=== PATIENT | male | born 1960 | race Caucasian/White ===

== ENCOUNTER 2021-07-03 16:41 | Inpatient (IN) | payer OTHER ==
[2021-07-03] MEDS ORDERED: MENTHOL/PHENOL 1 EACH UD MM PRN (18:21)
[2021-07-03] MEDS ORDERED: ONDANSETRON *ODT* 4 MG TABLET SL PRN (18:21)
[2021-07-03] MEDS ORDERED: BISMUTH SUBSALICYLATE 524 MG/30 ML PO PRN (18:21)
[2021-07-03] MEDS ORDERED: ACETAMINOPHEN 325 MG TABLET (FP) PO PRN ×2 (18:21)
[2021-07-03] MEDS ORDERED: MAGNESIUM CITRATE 300 ML BOTTLE PO PRN (18:21)
[2021-07-03] MEDS ORDERED: MAG HYDROX/AL HYDROX/SIMETH 30 ML UNIT-DOSE CUP PO PRN (18:21)
[2021-07-03 18:39] VITALS: BMI 25.2
[2021-07-03] MEDS ORDERED: diazePAM 5 MG TABLET PO PRN (19:45)
[2021-07-03] MEDS: THIAMINE HCL 100 MG TABLET (FP) PO SCH (22:07)
[2021-07-03] MEDS: hydrOXYzine PAMOATE 25 MG CAPSULE (FP) PO PRN (22:07)
[2021-07-03] MEDS: MELATONIN 5 MG TABLETS PO SCH (22:07)
[2021-07-03] MEDS: MAGNESIUM HYDROX 2400MG/30ML ORAL SUSPENSION 30 ML CUP PO PRN (22:08)
[2021-07-04] MEDS: LEVOTHYROXINE NA 25 MCG TABLET (FP) PO SCH ×2 (06:08→10:02)
[2021-07-04] MEDS: PRENATAL VITAMINS W/ FOLIC ACID TABLET (FP) PO SCH (09:59)
[2021-07-04] MEDS: ASPIRIN 81 MG CHEWABLE TABLETS PO SCH (10:00)
[2021-07-04] MEDS ORDERED: APIXABAN 5 MG TABLET PO SCH (10:00)
[2021-07-04] MEDS ORDERED: METOPROLOL TARTRATE 25 MG TABLET (FP) PO SCH (10:00)
[2021-07-04] MEDS ORDERED: APIXABAN 2.5 MG TABLET PO SCH (10:00)
[2021-07-04] MEDS: FAMOTIDINE 20 MG TABLET PO SCH ×2 (10:00→22:05)
[2021-07-04] MEDS ORDERED: DIGOXIN 0.125 MG TABLET PO SCH (10:00)
[2021-07-04] MEDS: diazePAM 5 MG TABLET PO SCH ×3 (10:21→22:05)
[2021-07-04 10:30] LABS: HEMATOCRIT 47.2 % (35.4-49); HEMOGLOBIN 15.7 GM/dL (11.7-16.9); MCH 29.9 pg (25.7-33.7); MCHC 33.4 g/dl (32.0-35.9); MEAN CELL VOLUME 89.8 fl (80-96); PLATELET COUNT 248 10^3/uL (134-434); RBC 5.26 M/mm3 (4.00-5.60); RDW 13.6 % (11.9-15.9); WHITE BLOOD COUNT 5.8 K/mm3 (4.0-10.0)
[2021-07-04 10:52] LABS: CALCIUM 9.6 mg/dL (8.5-10.1)
[2021-07-04 10:53] LABS: ALBUMIN 4.2 g/dl (3.4-5.0); BLOOD UREA NITROGEN 17.7 mg/dL (7-18)
[2021-07-04 10:56] LABS: CREATININE 0.9 mg/dL (0.55-1.3)
[2021-07-04 10:57] LABS: BILIRUBIN,TOTAL 0.8 mg/dL (0.2-1); TOT PROT 7.1 g/dl (6.4-8.2)
[2021-07-04] MEDS: MAGNESIUM HYDROX 2400MG/30ML ORAL SUSPENSION 30 ML CUP PO PRN (17:00)
[2021-07-04] MEDS: hydrOXYzine PAMOATE 25 MG CAPSULE (FP) PO PRN (17:00)
[2021-07-04] MEDS: diazePAM 5 MG TABLET PO PRN (20:39)
[2021-07-04] MEDS: METOPROLOL TARTRATE 25 MG TABLET (FP) PO SCH (20:58)
[2021-07-04] MEDS: APIXABAN 5 MG TABLET PO SCH (20:59)
[2021-07-04] MEDS: THIAMINE HCL 100 MG TABLET (FP) PO SCH (22:05)
[2021-07-04] MEDS: SENNOSIDES 8.6MG TABLET (FP) PO PRN (22:05)
[2021-07-04] MEDS: MELATONIN 5 MG TABLETS PO SCH (22:05)
[2021-07-05] MEDS: diazePAM 5 MG TABLET PO SCH ×4 (04:53→22:00)
[2021-07-05] MEDS: LEVOTHYROXINE NA 25 MCG TABLET (FP) PO SCH (06:35)
[2021-07-05] MEDS: APIXABAN 5 MG TABLET PO SCH ×2 (10:13→20:06)
[2021-07-05] MEDS: FAMOTIDINE 20 MG TABLET PO SCH ×2 (10:13→22:01)
[2021-07-05] MEDS: METOPROLOL TARTRATE 25 MG TABLET (FP) PO SCH ×2 (10:14→20:06)
[2021-07-05] MEDS: ASPIRIN 81 MG CHEWABLE TABLETS PO SCH (10:14)
[2021-07-05] MEDS: PRENATAL VITAMINS W/ FOLIC ACID TABLET (FP) PO SCH (10:14)
[2021-07-05] MEDS: DIGOXIN 0.125 MG TABLET PO SCH (13:10)
[2021-07-05] MEDS: diazePAM 5 MG TABLET PO PRN ×2 (13:11→20:05)
[2021-07-05] MEDS: MAGNESIUM HYDROX 2400MG/30ML ORAL SUSPENSION 30 ML CUP PO PRN (17:25)
[2021-07-05] MEDS: MELATONIN 5 MG TABLETS PO SCH (22:00)
[2021-07-05] MEDS: hydrOXYzine PAMOATE 25 MG CAPSULE (FP) PO PRN (22:01)
[2021-07-05] MEDS: THIAMINE HCL 100 MG TABLET (FP) PO SCH (22:01)
[2021-07-05] MEDS: SENNOSIDES 8.6MG TABLET (FP) PO PRN (22:02)
[2021-07-06] MEDS: diazePAM 5 MG TABLET PO SCH ×3 (05:08→21:59)
[2021-07-06] MEDS: LEVOTHYROXINE NA 25 MCG TABLET (FP) PO SCH (06:19)
[2021-07-06] MEDS: diazePAM 5 MG TABLET PO PRN ×2 (08:08→17:28)
[2021-07-06] MEDS: APIXABAN 5 MG TABLET PO SCH ×2 (08:43→20:05)
[2021-07-06] MEDS: METOPROLOL TARTRATE 25 MG TABLET (FP) PO SCH ×2 (08:43→20:04)
[2021-07-06] MEDS: ASPIRIN 81 MG CHEWABLE TABLETS PO SCH (10:14)
[2021-07-06] MEDS: FAMOTIDINE 20 MG TABLET PO SCH ×2 (10:14→22:00)
[2021-07-06] MEDS: PRENATAL VITAMINS W/ FOLIC ACID TABLET (FP) PO SCH (10:14)
[2021-07-06] MEDS ORDERED: MAGNESIUM CITRATE 300 ML BOTTLE PO ONE (10:15)
[2021-07-06] MEDS: METHOCARBAMOL 500 MG TABLET PO PRN ×2 (10:33→22:02)
[2021-07-06] MEDS: hydrOXYzine PAMOATE 25 MG CAPSULE (FP) PO PRN ×2 (10:33→23:16)
[2021-07-06] MEDS: DIGOXIN 0.125 MG TABLET PO SCH (13:11)
[2021-07-06] MEDS: MAGNESIUM HYDROX 2400MG/30ML ORAL SUSPENSION 30 ML CUP PO PRN (17:29)
[2021-07-06] MEDS: MELATONIN 5 MG TABLETS PO SCH (21:59)
[2021-07-06] MEDS: THIAMINE HCL 100 MG TABLET (FP) PO SCH (22:00)
[2021-07-06] MEDS: SENNOSIDES 8.6MG TABLET (FP) PO PRN (22:00)
[2021-07-07] MEDS ORDERED: diazePAM 5 MG TABLET PO SCH (06:00)
[2021-07-07] MEDS: LEVOTHYROXINE NA 25 MCG TABLET (FP) PO SCH (07:21)
[2021-07-07] MEDS: METOPROLOL TARTRATE 25 MG TABLET (FP) PO SCH ×3 (07:21→19:02)
[2021-07-07] MEDS: APIXABAN 5 MG TABLET PO SCH ×2 (07:21→19:03)
[2021-07-07] MEDS: PRENATAL VITAMINS W/ FOLIC ACID TABLET (FP) PO SCH (10:38)
[2021-07-07] MEDS: ASPIRIN 81 MG CHEWABLE TABLETS PO SCH (10:38)
[2021-07-07] MEDS: FAMOTIDINE 20 MG TABLET PO SCH ×2 (10:38→22:05)
[2021-07-07] MEDS: DIGOXIN 0.125 MG TABLET PO SCH (12:37)
[2021-07-07] MEDS ORDERED: diazePAM 5 MG TABLET PO ONE ×3 (16:52→22:00)
[2021-07-07] MEDS: MAGNESIUM HYDROX 2400MG/30ML ORAL SUSPENSION 30 ML CUP PO PRN (22:04)
[2021-07-07] MEDS: MELATONIN 5 MG TABLETS PO SCH (22:04)
[2021-07-07] MEDS: hydrOXYzine PAMOATE 25 MG CAPSULE (FP) PO PRN (22:05)
[2021-07-07] MEDS: METHOCARBAMOL 500 MG TABLET PO PRN (22:05)
[2021-07-07] MEDS: THIAMINE HCL 100 MG TABLET (FP) PO SCH (23:29)
[2021-07-08] MEDS ORDERED: diazePAM 5 MG TABLET PO ONE (06:00)
[2021-07-08] MEDS: LEVOTHYROXINE NA 25 MCG TABLET (FP) PO SCH (07:04)
[2021-07-08] MEDS: METOPROLOL TARTRATE 25 MG TABLET (FP) PO SCH ×2 (07:04→19:16)
[2021-07-08] MEDS: APIXABAN 5 MG TABLET PO SCH ×2 (07:04→19:16)
[2021-07-08] MEDS: PRENATAL VITAMINS W/ FOLIC ACID TABLET (FP) PO SCH (10:25)
[2021-07-08] MEDS: FAMOTIDINE 20 MG TABLET PO SCH ×2 (10:25→21:41)
[2021-07-08] MEDS: ASPIRIN 81 MG CHEWABLE TABLETS PO SCH (10:25)
[2021-07-08] MEDS: DIGOXIN 0.125 MG TABLET PO SCH (12:02)
[2021-07-08] MEDS: hydrOXYzine PAMOATE 25 MG CAPSULE (FP) PO PRN ×2 (16:38→21:41)
[2021-07-08] MEDS: METHOCARBAMOL 500 MG TABLET PO PRN (19:16)
[2021-07-08] MEDS: SENNOSIDES 8.6MG TABLET (FP) PO PRN (19:48)
[2021-07-08] MEDS: MELATONIN 5 MG TABLETS PO SCH (21:41)
[2021-07-08] MEDS: THIAMINE HCL 100 MG TABLET (FP) PO SCH (21:41)
[2021-07-09] MEDS: METHOCARBAMOL 500 MG TABLET PO PRN ×2 (01:17→10:15)
[2021-07-09] MEDS: LEVOTHYROXINE NA 25 MCG TABLET (FP) PO SCH (06:55)
[2021-07-09] MEDS: METOPROLOL TARTRATE 25 MG TABLET (FP) PO SCH (07:14)
[2021-07-09] MEDS: APIXABAN 5 MG TABLET PO SCH (07:14)
[2021-07-09] MEDS: hydrOXYzine PAMOATE 25 MG CAPSULE (FP) PO PRN (10:15)
[2021-07-09] MEDS: PRENATAL VITAMINS W/ FOLIC ACID TABLET (FP) PO SCH (10:15)
[2021-07-09] MEDS: ASPIRIN 81 MG CHEWABLE TABLETS PO SCH (10:15)
[2021-07-09 13:10] VITALS: BP 96/65; PULSE 100; TEMP 96.8
[2021-07-09] MEDS: FAMOTIDINE 20 MG TABLET PO SCH (13:11)
[2021-07-09] MEDS: DIGOXIN 0.125 MG TABLET PO SCH (13:11)
== END 2021-07-09 13:37 | disposition other institution (70) | DRG 775 ==
LOC: YASAS 16:41 → Y3N 21:20
PROVIDERS: ADMIT Allergy & Immunology; ATTEND Allergy & Immunology
PROC: HZ2ZZZZ Detoxification Services for Substance Abuse Treatment (ICD-10-PCS; principal; 2021-07-03)
DX: F10.230 Alcohol dependence with withdrawal, uncomplicated (principal); F12.20 Cannabis dependence, uncomplicated; F17.210 Nicotine dependence, cigarettes, uncomplicated; I48.91 Unspecified atrial fibrillation; I48.92 Unspecified atrial flutter; I10 Essential (primary) hypertension; E03.9 Hypothyroidism, unspecified; K21.9 Gastro-esophageal reflux disease without esophagitis; Z86.16 Personal history of COVID-19; Z86.79 Personal history of other diseases of the circulatory system; Z79.02 Long term (current) use of antithrombotics/antiplatelets
CPT/HCPCS: 36415; 80053; 80162; 84443; 85027; 86780; 93005; 93010; C9803; Q0162; U0003; U0005

== ENCOUNTER 2021-07-09 12:19 | Inpatient (IN) | payer OTHER ==
[2021-07-09] MEDS ORDERED: MENTHOL/PHENOL 1 EACH UD MM PRN (14:25)
[2021-07-09] MEDS ORDERED: MAGNESIUM CITRATE 300 ML BOTTLE PO PRN (14:25)
[2021-07-09] MEDS ORDERED: guaiFENesin 200 MG/10 ML 10 ML UNIT-DOSE CUPS PO PRN (14:25)
[2021-07-09] MEDS ORDERED: LOPERAMIDE HCL 2 MG CAPSULE PO PRN (14:25)
[2021-07-09] MEDS ORDERED: P-EPHED 60MG/TRIPROLIDI 2.5MG TABLET PO PRN (14:25)
[2021-07-09] MEDS ORDERED: IBUPROFEN 400 MG TABLET (FP) PO PRN (14:25)
[2021-07-09] MEDS ORDERED: NICOTINE 10 MG CARTRIDGE (INHALER) IH PRN (14:25)
[2021-07-09] MEDS ORDERED: MAGNESIUM HYDROX 2400MG/30ML ORAL SUSPENSION 30 ML CUP PO PRN (14:25)
[2021-07-09] MEDS ORDERED: METOPROLOL TARTRATE 25 MG TABLET (FP) PO ONE (14:32)
[2021-07-09] MEDS: METOPROLOL TARTRATE 50 MG TABLET (FP) PO SCH (21:01)
[2021-07-09] MEDS: APIXABAN 5 MG TABLET PO SCH (21:02)
[2021-07-09] MEDS: THIAMINE HCL 100 MG TABLET (FP) PO SCH (21:02)
[2021-07-09] MEDS: MELATONIN 5 MG TABLETS PO SCH (21:02)
[2021-07-09] MEDS: FAMOTIDINE 20 MG TABLET PO SCH (21:02)
[2021-07-09] MEDS: ACETAMINOPHEN 325 MG TABLET (FP) PO PRN (23:12)
[2021-07-10] MEDS: LEVOTHYROXINE NA 25 MCG TABLET (FP) PO SCH (07:29)
[2021-07-10] MEDS: ASPIRIN 81 MG CHEWABLE TABLETS PO SCH (09:36)
[2021-07-10] MEDS: METOPROLOL TARTRATE 50 MG TABLET (FP) PO SCH ×2 (09:36→21:15)
[2021-07-10] MEDS: APIXABAN 5 MG TABLET PO SCH ×2 (09:36→21:33)
[2021-07-10] MEDS: FAMOTIDINE 20 MG TABLET PO SCH ×2 (09:36→21:15)
[2021-07-10] MEDS: PRENATAL VITAMINS W/ FOLIC ACID TABLET (FP) PO SCH (09:36)
[2021-07-10] MEDS ORDERED: LEVOTHYROXINE NA 25 MCG TABLET (FP) PO SCH (10:00)
[2021-07-10] MEDS ORDERED: NICOTINE 7 MG/24 HOURS TOPICAL PATCH TD SCH (10:00)
[2021-07-10] MEDS: NICOTINE 10 MG CARTRIDGE (INHALER) IH PRN ×4 (11:51→23:52)
[2021-07-10] MEDS: DIGOXIN 0.125 MG TABLET PO SCH (14:09)
[2021-07-10] MEDS: HYDROCORTISONE 0.5% TOPICAL CREAM 30 GM TUBE TP PRN (15:42)
[2021-07-10] MEDS: DOCUSATE SODIUM 100 MG CAPSULE (FP) PO PRN (21:15)
[2021-07-10] MEDS: THIAMINE HCL 100 MG TABLET (FP) PO SCH (21:15)
[2021-07-10] MEDS: BISACODYL 5 MG TABLET.DR (FP) PO PRN (21:15)
[2021-07-10] MEDS: MELATONIN 5 MG TABLETS PO SCH (21:18)
[2021-07-10] MEDS ORDERED: DOCUSATE SODIUM 100 MG CAPSULE (FP) PO SCH (22:00)
[2021-07-11] MEDS: ACETAMINOPHEN 325 MG TABLET (FP) PO PRN ×2 (01:29→23:11)
[2021-07-11] MEDS: LEVOTHYROXINE NA 25 MCG TABLET (FP) PO SCH (06:04)
[2021-07-11] MEDS: NICOTINE 10 MG CARTRIDGE (INHALER) IH PRN ×5 (06:05→21:47)
[2021-07-11] MEDS: FAMOTIDINE 20 MG TABLET PO SCH ×2 (10:19→21:42)
[2021-07-11] MEDS: PRENATAL VITAMINS W/ FOLIC ACID TABLET (FP) PO SCH (10:19)
[2021-07-11] MEDS: ASPIRIN 81 MG CHEWABLE TABLETS PO SCH (10:19)
[2021-07-11] MEDS: BISACODYL 5 MG TABLET.DR (FP) PO PRN ×2 (10:20→21:42)
[2021-07-11] MEDS: METOPROLOL TARTRATE 50 MG TABLET (FP) PO SCH ×2 (10:21→21:46)
[2021-07-11] MEDS: APIXABAN 5 MG TABLET PO SCH ×2 (11:05→21:44)
[2021-07-11] MEDS: DIGOXIN 0.125 MG TABLET PO SCH (13:30)
[2021-07-11] MEDS: hydrOXYzine PAMOATE 25 MG CAPSULE (FP) PO PRN (17:09)
[2021-07-11] MEDS: HYDROCORTISONE 0.5% TOPICAL CREAM 30 GM TUBE TP PRN (19:34)
[2021-07-11] MEDS: THIAMINE HCL 100 MG TABLET (FP) PO SCH (21:42)
[2021-07-11] MEDS: DOCUSATE SODIUM 100 MG CAPSULE (FP) PO PRN (21:44)
[2021-07-11] MEDS: MELATONIN 5 MG TABLETS PO SCH (21:45)
[2021-07-12] MEDS: LEVOTHYROXINE NA 25 MCG TABLET (FP) PO SCH (06:00)
[2021-07-12] MEDS: NICOTINE 10 MG CARTRIDGE (INHALER) IH PRN ×4 (06:01→21:41)
[2021-07-12] MEDS: PRENATAL VITAMINS W/ FOLIC ACID TABLET (FP) PO SCH (10:39)
[2021-07-12] MEDS: ASPIRIN 81 MG CHEWABLE TABLETS PO SCH (10:40)
[2021-07-12] MEDS: FAMOTIDINE 20 MG TABLET PO SCH ×2 (10:40→21:40)
[2021-07-12] MEDS: APIXABAN 5 MG TABLET PO SCH ×2 (10:40→21:40)
[2021-07-12] MEDS: hydrOXYzine PAMOATE 25 MG CAPSULE (FP) PO PRN (10:41)
[2021-07-12] MEDS: METOPROLOL TARTRATE 50 MG TABLET (FP) PO SCH ×2 (11:39→21:40)
[2021-07-12] MEDS: DIGOXIN 0.125 MG TABLET PO SCH (13:28)
[2021-07-12] MEDS: THIAMINE HCL 100 MG TABLET (FP) PO SCH (21:41)
[2021-07-12] MEDS: ACETAMINOPHEN 325 MG TABLET (FP) PO PRN (21:41)
[2021-07-12] MEDS: DOCUSATE SODIUM 100 MG CAPSULE (FP) PO PRN (21:45)
[2021-07-12] MEDS ORDERED: SUVOREXANT 10 MG TABLET PO PRN (22:00)
[2021-07-13] MEDS: BISACODYL 5 MG TABLET.DR (FP) PO PRN ×2 (01:07→20:14)
[2021-07-13] MEDS: LEVOTHYROXINE NA 25 MCG TABLET (FP) PO SCH (06:08)
[2021-07-13] MEDS: NICOTINE 10 MG CARTRIDGE (INHALER) IH PRN ×7 (06:08→23:01)
[2021-07-13] MEDS: METOPROLOL TARTRATE 50 MG TABLET (FP) PO SCH (08:00)
[2021-07-13] MEDS: APIXABAN 5 MG TABLET PO SCH ×2 (08:00→20:08)
[2021-07-13] MEDS: PRENATAL VITAMINS W/ FOLIC ACID TABLET (FP) PO SCH (10:30)
[2021-07-13] MEDS: FAMOTIDINE 20 MG TABLET PO SCH ×2 (10:30→21:38)
[2021-07-13] MEDS: ASPIRIN 81 MG CHEWABLE TABLETS PO SCH (10:30)
[2021-07-13] MEDS: DIGOXIN 0.125 MG TABLET PO SCH (14:31)
[2021-07-13] MEDS ORDERED: METOPROLOL TARTRATE 50 MG TABLET (FP) PO SCH (20:00)
[2021-07-13] MEDS: METOPROLOL TARTRATE 25 MG TABLET (FP) PO SCH (20:08)
[2021-07-13] MEDS: DOCUSATE SODIUM 100 MG CAPSULE (FP) PO PRN (20:14)
[2021-07-13] MEDS: ACETAMINOPHEN 325 MG TABLET (FP) PO PRN (21:37)
[2021-07-13] MEDS: THIAMINE HCL 100 MG TABLET (FP) PO SCH (21:39)
[2021-07-14] MEDS: LEVOTHYROXINE NA 25 MCG TABLET (FP) PO SCH (06:11)
[2021-07-14] MEDS: APIXABAN 5 MG TABLET PO SCH ×2 (07:56→21:10)
[2021-07-14] MEDS: METOPROLOL TARTRATE 25 MG TABLET (FP) PO SCH ×2 (07:58→21:07)
[2021-07-14] MEDS: ASPIRIN 81 MG CHEWABLE TABLETS PO SCH (10:30)
[2021-07-14] MEDS: FAMOTIDINE 20 MG TABLET PO SCH ×2 (10:30→21:08)
[2021-07-14] MEDS: PRENATAL VITAMINS W/ FOLIC ACID TABLET (FP) PO SCH (10:30)
[2021-07-14] MEDS: BISACODYL 5 MG TABLET.DR (FP) PO PRN (10:32)
[2021-07-14] MEDS: NICOTINE 10 MG CARTRIDGE (INHALER) IH PRN ×2 (10:32→12:46)
[2021-07-14] MEDS: DIGOXIN 0.125 MG TABLET PO SCH (12:46)
[2021-07-14] MEDS ORDERED: MAGNESIUM CITRATE 300 ML BOTTLE PO ONE (19:57)
[2021-07-14] MEDS: THIAMINE HCL 100 MG TABLET (FP) PO SCH (21:08)
[2021-07-14] MEDS: MELATONIN 5 MG TABLETS PO PRN (21:08)
[2021-07-14] MEDS: ACETAMINOPHEN 325 MG TABLET (FP) PO PRN (22:53)
[2021-07-15] MEDS: LEVOTHYROXINE NA 25 MCG TABLET (FP) PO SCH (06:14)
[2021-07-15] MEDS: METOPROLOL TARTRATE 25 MG TABLET (FP) PO SCH ×2 (07:34→21:27)
[2021-07-15] MEDS: APIXABAN 5 MG TABLET PO SCH ×2 (07:34→21:26)
[2021-07-15] MEDS: FAMOTIDINE 20 MG TABLET PO SCH ×2 (10:01→21:27)
[2021-07-15] MEDS: ASPIRIN 81 MG CHEWABLE TABLETS PO SCH (10:01)
[2021-07-15] MEDS: PRENATAL VITAMINS W/ FOLIC ACID TABLET (FP) PO SCH (10:01)
[2021-07-15] MEDS ORDERED: METOPROLOL TARTRATE 25 MG TABLET (FP) PO ONE (11:15)
[2021-07-15] MEDS: NICOTINE 10 MG CARTRIDGE (INHALER) IH PRN ×3 (11:51→21:31)
[2021-07-15] MEDS: DIGOXIN 0.125 MG TABLET PO SCH (13:16)
[2021-07-15] MEDS: THIAMINE HCL 100 MG TABLET (FP) PO SCH (21:27)
[2021-07-15] MEDS: BISACODYL 5 MG TABLET.DR (FP) PO PRN (21:27)
[2021-07-15] MEDS: DOCUSATE SODIUM 100 MG CAPSULE (FP) PO PRN (21:30)
[2021-07-15] MEDS: ACETAMINOPHEN 325 MG TABLET (FP) PO PRN (22:45)
[2021-07-16] MEDS: LEVOTHYROXINE NA 25 MCG TABLET (FP) PO SCH (06:06)
[2021-07-16] MEDS: NICOTINE 10 MG CARTRIDGE (INHALER) IH PRN ×6 (06:08→23:48)
[2021-07-16] MEDS: METOPROLOL TARTRATE 25 MG TABLET (FP) PO SCH ×2 (07:58→21:48)
[2021-07-16] MEDS: APIXABAN 5 MG TABLET PO SCH ×2 (07:58→21:51)
[2021-07-16] MEDS: ACETAMINOPHEN 325 MG TABLET (FP) PO PRN ×2 (08:51→21:52)
[2021-07-16] MEDS: ASPIRIN 81 MG CHEWABLE TABLETS PO SCH (09:40)
[2021-07-16] MEDS: FAMOTIDINE 20 MG TABLET PO SCH ×2 (09:40→21:49)
[2021-07-16] MEDS: PRENATAL VITAMINS W/ FOLIC ACID TABLET (FP) PO SCH (09:40)
[2021-07-16] MEDS: DIGOXIN 0.125 MG TABLET PO SCH (14:20)
[2021-07-16] MEDS: MELATONIN 5 MG TABLETS PO PRN (21:49)
[2021-07-16] MEDS: THIAMINE HCL 100 MG TABLET (FP) PO SCH (21:49)
[2021-07-16] MEDS: BISACODYL 5 MG TABLET.DR (FP) PO PRN (21:51)
[2021-07-16] MEDS: DOCUSATE SODIUM 100 MG CAPSULE (FP) PO PRN (21:52)
[2021-07-17] MEDS ORDERED: METOPROLOL TARTRATE 25 MG TABLET (FP) PO ONE ×2 (01:10→15:15)
[2021-07-17] MEDS: LEVOTHYROXINE NA 25 MCG TABLET (FP) PO SCH (06:19)
[2021-07-17] MEDS: NICOTINE 10 MG CARTRIDGE (INHALER) IH PRN ×5 (06:28→21:41)
[2021-07-17] MEDS: APIXABAN 5 MG TABLET PO SCH ×2 (07:07→21:39)
[2021-07-17] MEDS: METOPROLOL TARTRATE 25 MG TABLET (FP) PO SCH ×2 (07:07→21:39)
[2021-07-17] MEDS: FAMOTIDINE 20 MG TABLET PO SCH ×2 (10:47→21:39)
[2021-07-17] MEDS: ASPIRIN 81 MG CHEWABLE TABLETS PO SCH (10:47)
[2021-07-17] MEDS: PRENATAL VITAMINS W/ FOLIC ACID TABLET (FP) PO SCH (10:47)
[2021-07-17] MEDS: DIGOXIN 0.125 MG TABLET PO SCH (13:26)
[2021-07-17] MEDS ORDERED: MAGNESIUM OXIDE 400 MG TABLET (FP) PO ONE (14:25)
[2021-07-17] MEDS ORDERED: METOPROLOL TARTRATE 50 MG TABLET (FP) PO SCH (20:00)
[2021-07-17] MEDS ORDERED: METOPROLOL TARTRATE 25 MG TABLET (FP) PO SCH (20:00)
[2021-07-17] MEDS: MELATONIN 5 MG TABLETS PO PRN (21:39)
[2021-07-17] MEDS: THIAMINE HCL 100 MG TABLET (FP) PO SCH (21:39)
[2021-07-17] MEDS: BISACODYL 5 MG TABLET.DR (FP) PO PRN (21:39)
[2021-07-17] MEDS: DOCUSATE SODIUM 100 MG CAPSULE (FP) PO PRN (21:44)
[2021-07-17] MEDS ORDERED: MAGNESIUM OXIDE 400 MG TABLET (FP) PO SCH (22:00)
[2021-07-17] MEDS: ACETAMINOPHEN 325 MG TABLET (FP) PO PRN (22:41)
[2021-07-18] MEDS: ACETAMINOPHEN 325 MG TABLET (FP) PO PRN (02:54)
[2021-07-18] MEDS: LEVOTHYROXINE NA 25 MCG TABLET (FP) PO SCH (05:59)
[2021-07-18] MEDS: NICOTINE 10 MG CARTRIDGE (INHALER) IH PRN ×5 (06:00→21:27)
[2021-07-18] MEDS: APIXABAN 5 MG TABLET PO SCH ×2 (07:56→21:26)
[2021-07-18] MEDS: METOPROLOL TARTRATE 25 MG TABLET (FP) PO SCH ×3 (07:56→21:26)
[2021-07-18] MEDS: FAMOTIDINE 20 MG TABLET PO SCH ×2 (10:34→21:26)
[2021-07-18] MEDS: PRENATAL VITAMINS W/ FOLIC ACID TABLET (FP) PO SCH (10:34)
[2021-07-18] MEDS: ASPIRIN 81 MG CHEWABLE TABLETS PO SCH (10:34)
[2021-07-18] MEDS: DIGOXIN 0.25 MG TABLET PO SCH (13:03)
[2021-07-18] MEDS: BISACODYL 5 MG TABLET.DR (FP) PO PRN (21:25)
[2021-07-18] MEDS: DOCUSATE SODIUM 100 MG CAPSULE (FP) PO PRN (21:25)
[2021-07-18] MEDS: THIAMINE HCL 100 MG TABLET (FP) PO SCH (21:25)
[2021-07-18] MEDS: MELATONIN 5 MG TABLETS PO PRN (21:26)
[2021-07-19] MEDS: METOPROLOL TARTRATE 25 MG TABLET (FP) PO SCH ×3 (06:21→21:59)
[2021-07-19] MEDS: LEVOTHYROXINE NA 25 MCG TABLET (FP) PO SCH (06:21)
[2021-07-19] MEDS: APIXABAN 5 MG TABLET PO SCH ×2 (07:49→22:39)
[2021-07-19] MEDS: PRENATAL VITAMINS W/ FOLIC ACID TABLET (FP) PO SCH (11:02)
[2021-07-19] MEDS: ASPIRIN 81 MG CHEWABLE TABLETS PO SCH (11:03)
[2021-07-19] MEDS: FAMOTIDINE 20 MG TABLET PO SCH ×2 (11:03→14:51)
[2021-07-19] MEDS: HYDROCORTISONE 0.5% TOPICAL CREAM 30 GM TUBE TP PRN (11:04)
[2021-07-19] MEDS: NICOTINE 10 MG CARTRIDGE (INHALER) IH PRN ×3 (11:04→22:00)
[2021-07-19] MEDS: DIGOXIN 0.25 MG TABLET PO SCH (13:03)
[2021-07-19] MEDS: THIAMINE HCL 100 MG TABLET (FP) PO SCH (21:59)
[2021-07-19] MEDS: ACETAMINOPHEN 325 MG TABLET (FP) PO PRN (21:59)
[2021-07-19] MEDS: BISACODYL 5 MG TABLET.DR (FP) PO PRN (21:59)
[2021-07-19] MEDS: DOCUSATE SODIUM 100 MG CAPSULE (FP) PO PRN (21:59)
[2021-07-19] MEDS: MELATONIN 5 MG TABLETS PO PRN (22:02)
[2021-07-20] MEDS: METOPROLOL TARTRATE 25 MG TABLET (FP) PO SCH ×3 (06:11→20:30)
[2021-07-20] MEDS: FAMOTIDINE 20 MG TABLET PO SCH ×2 (06:11→14:56)
[2021-07-20] MEDS: LEVOTHYROXINE NA 25 MCG TABLET (FP) PO SCH (06:12)
[2021-07-20] MEDS: NICOTINE 10 MG CARTRIDGE (INHALER) IH PRN ×4 (06:12→18:17)
[2021-07-20] MEDS: APIXABAN 5 MG TABLET PO SCH ×2 (07:59→20:30)
[2021-07-20] MEDS: PRENATAL VITAMINS W/ FOLIC ACID TABLET (FP) PO SCH (10:31)
[2021-07-20] MEDS: ASPIRIN 81 MG CHEWABLE TABLETS PO SCH (10:32)
[2021-07-20] MEDS: DIGOXIN 0.25 MG TABLET PO SCH (10:36)
[2021-07-20] MEDS: DOCUSATE SODIUM 100 MG CAPSULE (FP) PO PRN (20:28)
[2021-07-20] MEDS: BISACODYL 5 MG TABLET.DR (FP) PO PRN (20:29)
[2021-07-20] MEDS: MELATONIN 5 MG TABLETS PO PRN ×2 (20:32→22:22)
[2021-07-20] MEDS: THIAMINE HCL 100 MG TABLET (FP) PO SCH (22:27)
[2021-07-21] MEDS: NICOTINE 10 MG CARTRIDGE (INHALER) IH PRN ×6 (02:43→22:28)
[2021-07-21] MEDS: FAMOTIDINE 20 MG TABLET PO SCH ×2 (06:05→15:19)
[2021-07-21] MEDS: METOPROLOL TARTRATE 25 MG TABLET (FP) PO SCH ×3 (06:05→21:25)
[2021-07-21] MEDS: LEVOTHYROXINE NA 25 MCG TABLET (FP) PO SCH (06:06)
[2021-07-21] MEDS: ACETAMINOPHEN 325 MG TABLET (FP) PO PRN ×2 (07:01→21:26)
[2021-07-21] MEDS: APIXABAN 5 MG TABLET PO SCH ×2 (07:03→21:25)
[2021-07-21] MEDS: PRENATAL VITAMINS W/ FOLIC ACID TABLET (FP) PO SCH (11:00)
[2021-07-21] MEDS: ASPIRIN 81 MG CHEWABLE TABLETS PO SCH (11:01)
[2021-07-21] MEDS: DIGOXIN 0.25 MG TABLET PO SCH (11:02)
[2021-07-21] MEDS: DOCUSATE SODIUM 100 MG CAPSULE (FP) PO PRN (21:24)
[2021-07-21] MEDS: BISACODYL 5 MG TABLET.DR (FP) PO PRN (21:25)
[2021-07-21] MEDS: MELATONIN 5 MG TABLETS PO PRN (21:25)
[2021-07-21] MEDS: THIAMINE HCL 100 MG TABLET (FP) PO SCH (21:25)
[2021-07-22] MEDS: MAG HYDROX/AL HYDROX/SIMETH 30 ML UNIT-DOSE CUP PO PRN (01:00)
[2021-07-22] MEDS: LEVOTHYROXINE NA 25 MCG TABLET (FP) PO SCH (06:11)
[2021-07-22] MEDS: METOPROLOL TARTRATE 25 MG TABLET (FP) PO SCH ×3 (06:11→22:08)
[2021-07-22] MEDS: FAMOTIDINE 20 MG TABLET PO SCH ×2 (06:11→14:08)
[2021-07-22] MEDS: NICOTINE 10 MG CARTRIDGE (INHALER) IH PRN ×5 (06:27→22:11)
[2021-07-22] MEDS: APIXABAN 5 MG TABLET PO SCH ×2 (07:07→22:38)
[2021-07-22] MEDS: ASPIRIN 81 MG CHEWABLE TABLETS PO SCH (10:44)
[2021-07-22] MEDS: PRENATAL VITAMINS W/ FOLIC ACID TABLET (FP) PO SCH (10:44)
[2021-07-22] MEDS: DIGOXIN 0.25 MG TABLET PO SCH (10:45)
[2021-07-22] MEDS: DOCUSATE SODIUM 100 MG CAPSULE (FP) PO PRN (22:08)
[2021-07-22] MEDS: BISACODYL 5 MG TABLET.DR (FP) PO PRN (22:09)
[2021-07-22] MEDS: MELATONIN 5 MG TABLETS PO PRN (22:09)
[2021-07-22] MEDS: ACETAMINOPHEN 325 MG TABLET (FP) PO PRN (22:11)
[2021-07-22] MEDS: THIAMINE HCL 100 MG TABLET (FP) PO SCH (22:39)
[2021-07-23] MEDS: FAMOTIDINE 20 MG TABLET PO SCH ×2 (06:24→15:02)
[2021-07-23] MEDS: METOPROLOL TARTRATE 25 MG TABLET (FP) PO SCH ×3 (06:25→21:32)
[2021-07-23] MEDS: NICOTINE 10 MG CARTRIDGE (INHALER) IH PRN ×5 (06:25→21:35)
[2021-07-23] MEDS: LEVOTHYROXINE NA 25 MCG TABLET (FP) PO SCH (06:25)
[2021-07-23] MEDS: APIXABAN 5 MG TABLET PO SCH ×2 (07:17→21:32)
[2021-07-23] MEDS: ASPIRIN 81 MG CHEWABLE TABLETS PO SCH (10:41)
[2021-07-23] MEDS: PRENATAL VITAMINS W/ FOLIC ACID TABLET (FP) PO SCH (10:41)
[2021-07-23] MEDS: DIGOXIN 0.25 MG TABLET PO SCH (10:42)
[2021-07-23] MEDS: ACETAMINOPHEN 325 MG TABLET (FP) PO PRN ×2 (10:44→21:34)
[2021-07-23] MEDS: BISACODYL 5 MG TABLET.DR (FP) PO PRN (21:31)
[2021-07-23] MEDS: DOCUSATE SODIUM 100 MG CAPSULE (FP) PO PRN (21:32)
[2021-07-23] MEDS: THIAMINE HCL 100 MG TABLET (FP) PO SCH (21:32)
[2021-07-23] MEDS: MELATONIN 5 MG TABLETS PO PRN (21:32)
[2021-07-23] MEDS: TOLNAFTATE 1% CREAM 15 GM TUBE TP PRN (23:06)
[2021-07-24] MEDS: FAMOTIDINE 20 MG TABLET PO SCH ×2 (06:10→15:14)
[2021-07-24] MEDS: METOPROLOL TARTRATE 25 MG TABLET (FP) PO SCH ×3 (06:10→21:45)
[2021-07-24] MEDS: NICOTINE 10 MG CARTRIDGE (INHALER) IH PRN ×5 (06:11→21:46)
[2021-07-24] MEDS: APIXABAN 5 MG TABLET PO SCH ×2 (07:06→21:45)
[2021-07-24] MEDS: LEVOTHYROXINE NA 25 MCG TABLET (FP) PO SCH (07:06)
[2021-07-24] MEDS: DIGOXIN 0.25 MG TABLET PO SCH (10:16)
[2021-07-24] MEDS: PRENATAL VITAMINS W/ FOLIC ACID TABLET (FP) PO SCH (10:16)
[2021-07-24] MEDS: ASPIRIN 81 MG CHEWABLE TABLETS PO SCH (10:16)
[2021-07-24] MEDS: ACETAMINOPHEN 325 MG TABLET (FP) PO PRN (17:21)
[2021-07-24] MEDS: MELATONIN 5 MG TABLETS PO PRN (21:44)
[2021-07-24] MEDS: THIAMINE HCL 100 MG TABLET (FP) PO SCH (21:44)
[2021-07-24] MEDS: DOCUSATE SODIUM 100 MG CAPSULE (FP) PO PRN (21:44)
[2021-07-24] MEDS: BISACODYL 5 MG TABLET.DR (FP) PO PRN (21:45)
[2021-07-25] MEDS: NICOTINE 10 MG CARTRIDGE (INHALER) IH PRN ×5 (06:00→21:26)
[2021-07-25] MEDS: LEVOTHYROXINE NA 25 MCG TABLET (FP) PO SCH (06:00)
[2021-07-25] MEDS: FAMOTIDINE 20 MG TABLET PO SCH ×2 (06:00→16:00)
[2021-07-25] MEDS: TOLNAFTATE 1% CREAM 15 GM TUBE TP PRN (06:27)
[2021-07-25] MEDS: METOPROLOL TARTRATE 25 MG TABLET (FP) PO SCH ×3 (06:28→21:26)
[2021-07-25] MEDS: APIXABAN 5 MG TABLET PO SCH ×2 (07:57→21:24)
[2021-07-25] MEDS: ASPIRIN 81 MG CHEWABLE TABLETS PO SCH (10:12)
[2021-07-25] MEDS: PRENATAL VITAMINS W/ FOLIC ACID TABLET (FP) PO SCH (10:12)
[2021-07-25] MEDS: DIGOXIN 0.25 MG TABLET PO SCH (10:13)
[2021-07-25] MEDS: HYDROCORTISONE 0.5% TOPICAL CREAM 30 GM TUBE TP PRN (10:13)
[2021-07-25] MEDS: MELATONIN 5 MG TABLETS PO PRN (21:24)
[2021-07-25] MEDS: DOCUSATE SODIUM 100 MG CAPSULE (FP) PO PRN (21:24)
[2021-07-25] MEDS: BISACODYL 5 MG TABLET.DR (FP) PO PRN (21:24)
[2021-07-25] MEDS: THIAMINE HCL 100 MG TABLET (FP) PO SCH (21:24)
[2021-07-25] MEDS: ACETAMINOPHEN 325 MG TABLET (FP) PO PRN (23:34)
[2021-07-26] MEDS: FAMOTIDINE 20 MG TABLET PO SCH ×2 (06:07→15:46)
[2021-07-26] MEDS: LEVOTHYROXINE NA 25 MCG TABLET (FP) PO SCH (06:07)
[2021-07-26] MEDS: NICOTINE 10 MG CARTRIDGE (INHALER) IH PRN ×5 (06:08→21:42)
[2021-07-26] MEDS: METOPROLOL TARTRATE 25 MG TABLET (FP) PO SCH ×3 (07:07→21:21)
[2021-07-26] MEDS: APIXABAN 5 MG TABLET PO SCH ×2 (07:07→21:20)
[2021-07-26] MEDS: PRENATAL VITAMINS W/ FOLIC ACID TABLET (FP) PO SCH (10:35)
[2021-07-26] MEDS: ASPIRIN 81 MG CHEWABLE TABLETS PO SCH (10:36)
[2021-07-26] MEDS: DIGOXIN 0.25 MG TABLET PO SCH (10:37)
[2021-07-26] MEDS: DOCUSATE SODIUM 100 MG CAPSULE (FP) PO PRN (21:20)
[2021-07-26] MEDS: BISACODYL 5 MG TABLET.DR (FP) PO PRN (21:20)
[2021-07-26] MEDS: THIAMINE HCL 100 MG TABLET (FP) PO SCH (21:20)
[2021-07-26] MEDS: MELATONIN 5 MG TABLETS PO PRN (21:22)
[2021-07-26] MEDS: ACETAMINOPHEN 325 MG TABLET (FP) PO PRN (21:22)
[2021-07-27] MEDS: FAMOTIDINE 20 MG TABLET PO SCH ×2 (06:38→15:59)
[2021-07-27] MEDS: METOPROLOL TARTRATE 25 MG TABLET (FP) PO SCH ×3 (06:38→20:13)
[2021-07-27] MEDS: LEVOTHYROXINE NA 25 MCG TABLET (FP) PO SCH (06:39)
[2021-07-27] MEDS: NICOTINE 10 MG CARTRIDGE (INHALER) IH PRN ×5 (06:39→21:32)
[2021-07-27] MEDS: APIXABAN 5 MG TABLET PO SCH ×2 (07:04→20:13)
[2021-07-27] MEDS: ASPIRIN 81 MG CHEWABLE TABLETS PO SCH (10:34)
[2021-07-27] MEDS: PRENATAL VITAMINS W/ FOLIC ACID TABLET (FP) PO SCH (10:34)
[2021-07-27] MEDS: DIGOXIN 0.25 MG TABLET PO SCH (10:38)
[2021-07-27] MEDS: ACETAMINOPHEN 325 MG TABLET (FP) PO PRN (18:50)
[2021-07-27] MEDS: BISACODYL 5 MG TABLET.DR (FP) PO PRN (20:13)
[2021-07-27] MEDS: DOCUSATE SODIUM 100 MG CAPSULE (FP) PO PRN (20:14)
[2021-07-27] MEDS: TOLNAFTATE 1% CREAM 15 GM TUBE TP PRN (20:14)
[2021-07-27] MEDS: MELATONIN 5 MG TABLETS PO PRN (21:32)
[2021-07-28] MEDS: THIAMINE HCL 100 MG TABLET (FP) PO SCH ×2 (00:02→21:48)
[2021-07-28] MEDS: LEVOTHYROXINE NA 25 MCG TABLET (FP) PO SCH (06:03)
[2021-07-28] MEDS: FAMOTIDINE 20 MG TABLET PO SCH ×2 (06:03→15:53)
[2021-07-28] MEDS: METOPROLOL TARTRATE 25 MG TABLET (FP) PO SCH ×3 (06:03→21:48)
[2021-07-28] MEDS: NICOTINE 10 MG CARTRIDGE (INHALER) IH PRN ×5 (06:04→21:49)
[2021-07-28] MEDS: APIXABAN 5 MG TABLET PO SCH ×2 (07:09→21:48)
[2021-07-28] MEDS: PRENATAL VITAMINS W/ FOLIC ACID TABLET (FP) PO SCH (10:07)
[2021-07-28] MEDS: ASPIRIN 81 MG CHEWABLE TABLETS PO SCH (10:07)
[2021-07-28] MEDS: DIGOXIN 0.25 MG TABLET PO SCH (10:08)
[2021-07-28] MEDS: ACETAMINOPHEN 325 MG TABLET (FP) PO PRN ×2 (13:38→21:47)
[2021-07-28] MEDS: MELATONIN 5 MG TABLETS PO PRN (21:46)
[2021-07-28] MEDS: DOCUSATE SODIUM 100 MG CAPSULE (FP) PO PRN (21:47)
[2021-07-28] MEDS: BISACODYL 5 MG TABLET.DR (FP) PO PRN (22:24)
[2021-07-29] MEDS: FAMOTIDINE 20 MG TABLET PO SCH ×2 (06:10→15:33)
[2021-07-29] MEDS: LEVOTHYROXINE NA 25 MCG TABLET (FP) PO SCH (06:11)
[2021-07-29] MEDS: NICOTINE 10 MG CARTRIDGE (INHALER) IH PRN ×5 (06:11→20:10)
[2021-07-29] MEDS: METOPROLOL TARTRATE 25 MG TABLET (FP) PO SCH ×3 (06:11→20:06)
[2021-07-29] MEDS: APIXABAN 5 MG TABLET PO SCH ×2 (07:09→20:06)
[2021-07-29] MEDS: PRENATAL VITAMINS W/ FOLIC ACID TABLET (FP) PO SCH (10:21)
[2021-07-29] MEDS: ASPIRIN 81 MG CHEWABLE TABLETS PO SCH (10:22)
[2021-07-29] MEDS: DIGOXIN 0.25 MG TABLET PO SCH (10:23)
[2021-07-29] MEDS: ACETAMINOPHEN 325 MG TABLET (FP) PO PRN ×2 (10:24→21:50)
[2021-07-29] MEDS: THIAMINE HCL 100 MG TABLET (FP) PO SCH ×2 (20:06→22:39)
[2021-07-29] MEDS: BISACODYL 5 MG TABLET.DR (FP) PO PRN (20:07)
[2021-07-29] MEDS: DOCUSATE SODIUM 100 MG CAPSULE (FP) PO PRN (20:07)
[2021-07-29] MEDS: MAG HYDROX/AL HYDROX/SIMETH 30 ML UNIT-DOSE CUP PO PRN (21:08)
[2021-07-29] MEDS: MELATONIN 5 MG TABLETS PO PRN (21:50)
[2021-07-30] MEDS: NICOTINE 10 MG CARTRIDGE (INHALER) IH PRN ×4 (05:58→21:31)
[2021-07-30] MEDS: FAMOTIDINE 20 MG TABLET PO SCH ×2 (05:58→14:48)
[2021-07-30] MEDS: LEVOTHYROXINE NA 25 MCG TABLET (FP) PO SCH (05:59)
[2021-07-30] MEDS: METOPROLOL TARTRATE 25 MG TABLET (FP) PO SCH ×3 (05:59→21:29)
[2021-07-30] MEDS: TOLNAFTATE 1% CREAM 15 GM TUBE TP PRN (06:22)
[2021-07-30] MEDS: APIXABAN 5 MG TABLET PO SCH ×2 (07:32→21:30)
[2021-07-30] MEDS: PRENATAL VITAMINS W/ FOLIC ACID TABLET (FP) PO SCH (10:25)
[2021-07-30] MEDS: ASPIRIN 81 MG CHEWABLE TABLETS PO SCH (10:25)
[2021-07-30] MEDS: DIGOXIN 0.25 MG TABLET PO SCH (10:26)
[2021-07-30] MEDS: THIAMINE HCL 100 MG TABLET (FP) PO SCH (21:29)
[2021-07-30] MEDS: MELATONIN 5 MG TABLETS PO PRN (21:30)
[2021-07-30] MEDS: DOCUSATE SODIUM 100 MG CAPSULE (FP) PO PRN (21:30)
[2021-07-30] MEDS: BISACODYL 5 MG TABLET.DR (FP) PO PRN (21:30)
[2021-07-31] MEDS: NICOTINE 10 MG CARTRIDGE (INHALER) IH PRN ×5 (06:14→20:55)
[2021-07-31] MEDS: METOPROLOL TARTRATE 25 MG TABLET (FP) PO SCH ×3 (06:15→21:56)
[2021-07-31] MEDS: FAMOTIDINE 20 MG TABLET PO SCH ×2 (06:15→15:47)
[2021-07-31] MEDS: LEVOTHYROXINE NA 25 MCG TABLET (FP) PO SCH (06:16)
[2021-07-31] MEDS: HYDROCORTISONE 0.5% TOPICAL CREAM 30 GM TUBE TP PRN (06:18)
[2021-07-31] MEDS: APIXABAN 5 MG TABLET PO SCH ×2 (07:02→21:55)
[2021-07-31] MEDS: ASPIRIN 81 MG CHEWABLE TABLETS PO SCH (09:16)
[2021-07-31] MEDS: DIGOXIN 0.25 MG TABLET PO SCH (09:18)
[2021-07-31] MEDS: PRENATAL VITAMINS W/ FOLIC ACID TABLET (FP) PO SCH (09:18)
[2021-07-31] MEDS: LIDOCAINE 5% TOPICAL PATCH TP SCH (09:54)
[2021-07-31] MEDS: MELATONIN 5 MG TABLETS PO PRN (21:55)
[2021-07-31] MEDS: LIDOCAINE PATCH REMOVAL MC SCH (21:56)
[2021-07-31] MEDS: THIAMINE HCL 100 MG TABLET (FP) PO SCH (21:56)
[2021-07-31] MEDS: DOCUSATE SODIUM 100 MG CAPSULE (FP) PO PRN (21:58)
[2021-07-31] MEDS: BISACODYL 5 MG TABLET.DR (FP) PO PRN (21:59)
[2021-07-31] MEDS: TOLNAFTATE 1% CREAM 15 GM TUBE TP PRN (22:30)
[2021-08-01] MEDS: LEVOTHYROXINE NA 25 MCG TABLET (FP) PO SCH (06:00)
[2021-08-01] MEDS: FAMOTIDINE 20 MG TABLET PO SCH ×2 (06:00→15:39)
[2021-08-01] MEDS: METOPROLOL TARTRATE 25 MG TABLET (FP) PO SCH ×3 (06:00→21:39)
[2021-08-01] MEDS: NICOTINE 10 MG CARTRIDGE (INHALER) IH PRN ×5 (06:01→20:16)
[2021-08-01] MEDS: APIXABAN 5 MG TABLET PO SCH ×2 (07:32→21:39)
[2021-08-01] MEDS: PRENATAL VITAMINS W/ FOLIC ACID TABLET (FP) PO SCH (09:57)
[2021-08-01] MEDS: ASPIRIN 81 MG CHEWABLE TABLETS PO SCH (09:57)
[2021-08-01] MEDS: DIGOXIN 0.25 MG TABLET PO SCH (09:58)
[2021-08-01] MEDS: LIDOCAINE 5% TOPICAL PATCH TP SCH (09:59)
[2021-08-01] MEDS: ACETAMINOPHEN 325 MG TABLET (FP) PO PRN ×2 (10:31→21:39)
[2021-08-01] MEDS: DOCUSATE SODIUM 100 MG CAPSULE (FP) PO PRN (21:39)
[2021-08-01] MEDS: THIAMINE HCL 100 MG TABLET (FP) PO SCH (21:39)
[2021-08-01] MEDS: BISACODYL 5 MG TABLET.DR (FP) PO PRN (21:39)
[2021-08-01] MEDS: MELATONIN 5 MG TABLETS PO PRN (21:40)
[2021-08-01] MEDS: LIDOCAINE PATCH REMOVAL MC SCH (21:42)
[2021-08-02] MEDS: METOPROLOL TARTRATE 25 MG TABLET (FP) PO SCH ×3 (06:00→21:29)
[2021-08-02] MEDS: NICOTINE 10 MG CARTRIDGE (INHALER) IH PRN ×5 (06:00→20:15)
[2021-08-02] MEDS: FAMOTIDINE 20 MG TABLET PO SCH ×2 (06:00→15:31)
[2021-08-02] MEDS: LEVOTHYROXINE NA 25 MCG TABLET (FP) PO SCH (06:01)
[2021-08-02] MEDS: APIXABAN 5 MG TABLET PO SCH ×2 (07:06→21:29)
[2021-08-02] MEDS: DIGOXIN 0.25 MG TABLET PO SCH (10:04)
[2021-08-02] MEDS: PRENATAL VITAMINS W/ FOLIC ACID TABLET (FP) PO SCH (10:04)
[2021-08-02] MEDS: ASPIRIN 81 MG CHEWABLE TABLETS PO SCH (10:04)
[2021-08-02] MEDS: LIDOCAINE 5% TOPICAL PATCH TP SCH (10:06)
[2021-08-02] MEDS: ACETAMINOPHEN 325 MG TABLET (FP) PO PRN ×2 (15:31→21:29)
[2021-08-02] MEDS: DOCUSATE SODIUM 100 MG CAPSULE (FP) PO PRN (21:29)
[2021-08-02] MEDS: THIAMINE HCL 100 MG TABLET (FP) PO SCH (21:30)
[2021-08-02] MEDS: BISACODYL 5 MG TABLET.DR (FP) PO PRN (21:30)
[2021-08-02] MEDS: TOLNAFTATE 1% CREAM 15 GM TUBE TP PRN (21:31)
[2021-08-02] MEDS: MELATONIN 5 MG TABLETS PO PRN (21:31)
[2021-08-02] MEDS: LIDOCAINE PATCH REMOVAL MC SCH (21:40)
[2021-08-03] MEDS: FAMOTIDINE 20 MG TABLET PO SCH ×2 (06:01→15:06)
[2021-08-03] MEDS: METOPROLOL TARTRATE 25 MG TABLET (FP) PO SCH ×3 (06:01→21:37)
[2021-08-03] MEDS: LEVOTHYROXINE NA 25 MCG TABLET (FP) PO SCH (06:02)
[2021-08-03] MEDS: NICOTINE 10 MG CARTRIDGE (INHALER) IH PRN ×5 (06:03→21:32)
[2021-08-03] MEDS: APIXABAN 5 MG TABLET PO SCH ×2 (07:06→21:37)
[2021-08-03] MEDS: DIGOXIN 0.25 MG TABLET PO SCH (10:22)
[2021-08-03] MEDS: PRENATAL VITAMINS W/ FOLIC ACID TABLET (FP) PO SCH (10:24)
[2021-08-03] MEDS: ASPIRIN 81 MG CHEWABLE TABLETS PO SCH (10:24)
[2021-08-03] MEDS: LIDOCAINE 5% TOPICAL PATCH TP SCH (10:25)
[2021-08-03] MEDS: ACETAMINOPHEN 325 MG TABLET (FP) PO PRN ×2 (10:38→21:36)
[2021-08-03] MEDS: TETRAHYDROZOLINE HCL EYE DROPS OD PRN (17:34)
[2021-08-03] MEDS: MELATONIN 5 MG TABLETS PO PRN (21:36)
[2021-08-03] MEDS: DOCUSATE SODIUM 100 MG CAPSULE (FP) PO PRN (21:37)
[2021-08-03] MEDS: THIAMINE HCL 100 MG TABLET (FP) PO SCH (21:37)
[2021-08-03] MEDS: BISACODYL 5 MG TABLET.DR (FP) PO PRN (21:38)
[2021-08-03] MEDS: LIDOCAINE PATCH REMOVAL MC SCH (22:05)
[2021-08-04] MEDS: NICOTINE 10 MG CARTRIDGE (INHALER) IH PRN ×4 (06:06→21:47)
[2021-08-04] MEDS: FAMOTIDINE 20 MG TABLET PO SCH ×2 (06:06→16:01)
[2021-08-04] MEDS: METOPROLOL TARTRATE 25 MG TABLET (FP) PO SCH ×3 (06:06→21:43)
[2021-08-04] MEDS: LEVOTHYROXINE NA 25 MCG TABLET (FP) PO SCH (06:07)
[2021-08-04] MEDS: ACETAMINOPHEN 325 MG TABLET (FP) PO PRN ×2 (06:07→21:42)
[2021-08-04] MEDS: TETRAHYDROZOLINE HCL EYE DROPS OD PRN ×2 (06:33→21:41)
[2021-08-04] MEDS: APIXABAN 5 MG TABLET PO SCH ×2 (07:21→21:45)
[2021-08-04] MEDS: ASPIRIN 81 MG CHEWABLE TABLETS PO SCH (09:43)
[2021-08-04] MEDS: PRENATAL VITAMINS W/ FOLIC ACID TABLET (FP) PO SCH (09:43)
[2021-08-04] MEDS: DIGOXIN 0.25 MG TABLET PO SCH (09:44)
[2021-08-04] MEDS: LIDOCAINE 5% TOPICAL PATCH TP SCH (09:44)
[2021-08-04] MEDS: TOLNAFTATE 1% CREAM 15 GM TUBE TP PRN (09:46)
[2021-08-04] MEDS: DOCUSATE SODIUM 100 MG CAPSULE (FP) PO PRN (21:42)
[2021-08-04] MEDS: MELATONIN 5 MG TABLETS PO PRN (21:42)
[2021-08-04] MEDS: THIAMINE HCL 100 MG TABLET (FP) PO SCH (21:42)
[2021-08-04] MEDS: BISACODYL 5 MG TABLET.DR (FP) PO PRN (21:43)
[2021-08-04] MEDS: LIDOCAINE PATCH REMOVAL MC SCH (23:27)
[2021-08-04] MEDS: MAG HYDROX/AL HYDROX/SIMETH 30 ML UNIT-DOSE CUP PO PRN (23:48)
[2021-08-05] MEDS: LEVOTHYROXINE NA 25 MCG TABLET (FP) PO SCH (06:25)
[2021-08-05] MEDS: FAMOTIDINE 20 MG TABLET PO SCH ×2 (06:25→16:03)
[2021-08-05] MEDS: NICOTINE 10 MG CARTRIDGE (INHALER) IH PRN ×5 (06:25→22:44)
[2021-08-05] MEDS: METOPROLOL TARTRATE 25 MG TABLET (FP) PO SCH ×3 (06:25→22:44)
[2021-08-05] MEDS: TETRAHYDROZOLINE HCL EYE DROPS OD PRN ×2 (06:45→22:42)
[2021-08-05] MEDS: APIXABAN 5 MG TABLET PO SCH ×2 (07:31→22:44)
[2021-08-05] MEDS: PRENATAL VITAMINS W/ FOLIC ACID TABLET (FP) PO SCH (09:18)
[2021-08-05] MEDS: ASPIRIN 81 MG CHEWABLE TABLETS PO SCH (09:18)
[2021-08-05] MEDS: DIGOXIN 0.25 MG TABLET PO SCH (09:20)
[2021-08-05] MEDS: LIDOCAINE 5% TOPICAL PATCH TP SCH (09:20)
[2021-08-05] MEDS: TOLNAFTATE 1% CREAM 15 GM TUBE TP PRN (09:22)
[2021-08-05] MEDS: LIDOCAINE PATCH REMOVAL MC SCH (22:00)
[2021-08-05] MEDS: THIAMINE HCL 100 MG TABLET (FP) PO SCH (22:42)
[2021-08-05] MEDS: ACETAMINOPHEN 325 MG TABLET (FP) PO PRN (22:42)
[2021-08-05] MEDS: DOCUSATE SODIUM 100 MG CAPSULE (FP) PO PRN (22:43)
[2021-08-05] MEDS: BISACODYL 5 MG TABLET.DR (FP) PO PRN (22:44)
[2021-08-06] MEDS: FAMOTIDINE 20 MG TABLET PO SCH ×2 (06:04→15:50)
[2021-08-06] MEDS: METOPROLOL TARTRATE 25 MG TABLET (FP) PO SCH ×3 (06:04→22:07)
[2021-08-06] MEDS: LEVOTHYROXINE NA 25 MCG TABLET (FP) PO SCH (06:04)
[2021-08-06] MEDS: APIXABAN 5 MG TABLET PO SCH ×2 (07:42→22:07)
[2021-08-06] MEDS: PRENATAL VITAMINS W/ FOLIC ACID TABLET (FP) PO SCH (09:55)
[2021-08-06] MEDS: ASPIRIN 81 MG CHEWABLE TABLETS PO SCH (09:55)
[2021-08-06] MEDS: LIDOCAINE 5% TOPICAL PATCH TP SCH (09:56)
[2021-08-06] MEDS: NICOTINE 10 MG CARTRIDGE (INHALER) IH PRN ×4 (09:56→22:14)
[2021-08-06] MEDS: DIGOXIN 0.25 MG TABLET PO SCH (10:08)
[2021-08-06] MEDS: DOCUSATE SODIUM 100 MG CAPSULE (FP) PO PRN (22:07)
[2021-08-06] MEDS: BISACODYL 5 MG TABLET.DR (FP) PO PRN (22:07)
[2021-08-06] MEDS: THIAMINE HCL 100 MG TABLET (FP) PO SCH (22:07)
[2021-08-06] MEDS: MELATONIN 5 MG TABLETS PO PRN (22:07)
[2021-08-06] MEDS: ACETAMINOPHEN 325 MG TABLET (FP) PO PRN (22:08)
[2021-08-06] MEDS: LIDOCAINE PATCH REMOVAL MC SCH (22:09)
[2021-08-07] MEDS: METOPROLOL TARTRATE 25 MG TABLET (FP) PO SCH (06:12)
[2021-08-07] MEDS: FAMOTIDINE 20 MG TABLET PO SCH (06:12)
[2021-08-07] MEDS: LEVOTHYROXINE NA 25 MCG TABLET (FP) PO SCH (06:12)
[2021-08-07] MEDS: NICOTINE 10 MG CARTRIDGE (INHALER) IH PRN ×2 (06:14→08:37)
[2021-08-07 07:19] VITALS: TEMP 98
[2021-08-07] MEDS: APIXABAN 5 MG TABLET PO SCH (07:53)
[2021-08-07] MEDS: PRENATAL VITAMINS W/ FOLIC ACID TABLET (FP) PO SCH (09:22)
[2021-08-07] MEDS: ASPIRIN 81 MG CHEWABLE TABLETS PO SCH (09:24)
[2021-08-07] MEDS: DIGOXIN 0.25 MG TABLET PO SCH (09:24)
[2021-08-07] MEDS: LIDOCAINE 5% TOPICAL PATCH TP SCH (09:25)
[2021-08-07 09:26] VITALS: PULSE 66
[2021-08-07 11:58] VITALS: BP 117/72
== END 2021-08-07 09:30 | disposition home or self-care (01) | DRG 772 ==
LOC: YASAS 12:19 → Y3W 12:26 → Y5N 07-10 13:41 → UNDODISIN 08-02 11:19
PROVIDERS: ADMIT Allergy & Immunology; ATTEND Allergy & Immunology
PROC: HZ42ZZZ Group Counseling for Substance Abuse Treatment, Cognitive-Behavioral (ICD-10-PCS; principal; 2021-07-09)
DX: F10.20 Alcohol dependence, uncomplicated (principal); F12.10 Cannabis abuse, uncomplicated; E03.9 Hypothyroidism, unspecified; K21.9 Gastro-esophageal reflux disease without esophagitis; I48.92 Unspecified atrial flutter; I25.10 Atherosclerotic heart disease of native coronary artery without angina pectoris; I10 Essential (primary) hypertension; M25.511 Pain in right shoulder; G89.29 Other chronic pain; Z86.718 Personal history of other venous thrombosis and embolism; Z79.01 Long term (current) use of anticoagulants; Z87.891 Personal history of nicotine dependence; Z59.02 Unsheltered homelessness
CPT/HCPCS: 80162; 93005; 93010; C9803; U0003; U0005